=== PATIENT | female | born 1965 | race Caucasian/White ===

== ENCOUNTER 2021-01-25 07:39 | Emergency (ER) | payer OTHER ==
[~2021-01-25] VITALS: Ht 160 cm; Wt 105.2 kg
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
[2021-01-25] MEDS ORDERED: ACETAMINOPHEN 325 MG TABLET PO ONE (09:00)
[2021-01-25] MEDS ORDERED: ACETAMINOPHEN 325 MG TABLET ONE (09:03)
--- NOTE | 2021-01-25 09:14 | NUR ---
The patient alert and oriented x4. Respiration regular and unlabored. Medicated the patient per order (tylenol 650 mg po) for nech and back pain 07/20. Patient discharged to home in stable condition. Written and verbal after care instructions given. Patient verbalizes understanding of instruction. Patient called [facility] for transpo.
[2021-01-25 09:19] VITALS: BP 133/90
== END 2021-01-25 09:20 | disposition home or self-care (01) ==
LOC: ER 07:39
DX: S16.1XXA Strain of muscle, fascia and tendon at neck level, initial encounter (principal); S00.03XA Contusion of scalp, initial encounter; I10 Essential (primary) hypertension; E11.9 Type 2 diabetes mellitus without complications; V32.6XXA Passenger in three-wheeled motor vehicle injured in collision with two- or three-wheeled motor vehicle in traffic accident, initial encounter; Y93.89 Activity, other specified; Y92.89 Other specified places as the place of occurrence of the external cause; Y99.8 Other external cause status
CPT/HCPCS: 70450; 72125; 99285; L0172